=== PATIENT | female | born 1930 | race Caucasian/White ===

== ENCOUNTER 2019-09-08 14:34 | Emergency (ER) | payer MEDICARE ==
[~2019-09-08] VITALS: Ht 154.9 cm; Wt 61.0 kg
[~2019-09-08 14:34] MED LIST: ASPI-612 PO; ATOR20TA58 PO; CLOP75TA PO; LISI10TA2 PO; LISI40TA2 PO
[2019-09-08 15:20] VITALS: BP 143/67
--- NOTE | 2019-09-08 15:31 | RAD ---
EXAM: Right long finger, 3 views. HISTORY: Trauma. COMPARISON: None. FINDINGS: 3 views of the right long finger are obtained. There is soft tissue swelling involving the distal aspect of the third finger. There is overlying bandage material. No convincing foreign body is seen. IMPRESSION: Soft tissue swelling involving the distal third finger. No fracture or foreign body is seen. Electronically signed by: Susan Cruz MD (09/08/2019 3:29 PM) [facility]
[2019-09-08] MEDS: HYDROcodone/APAP 5/325MG 1 TAB TABLET PO ONE (16:45)
[2019-09-08] MEDS: TRANEXAMIC ACID 1,000 MG/10 ML VIAL. TOP ONE (16:45)
[2019-09-08] MEDS: LIDOCAINE WITH 8.4% SOD BICARB 3 ML DISP.SYRIN. INJ ONE (16:45)
[2019-09-08] MEDS: DIPH,PERTUSS(ACELL),TET VAC/PF 0.5 ML SYRINGE. VAX IM ONE (16:51)
--- NOTE | 2019-09-08 17:36 | PHYS DOC ---
Past Medical History Past Medical History: Hypertension, Hypothyroid Past Surgical History: Tonsillectomy Additional Past Surgical Histo: D&C Smoking Status: Never Smoker Alcohol Use: Rarely Adult General Chief Complaint Chief Complaint: FINGER INJURY HPI HPI Patient is a 89 year old female with a history of hypertension, hypothyroidism, who presents to the ED today complaining of right middle finger laceration. Patient states she got cut yesterday while closing a window. She reports the window fell on her finger. She is right-handed. She reports she is on Plavix and has been bleeding since the injury happened yesterday at 1 PM Review of Systems Review of Systems Constitutional: Denies fever or chills [] Musculoskeletal: Denies back pain or joint pain [] Integument: Reports right middle finger laceration Neurologic: Denies headache, focal weakness or sensory changes [] All other systems were reviewed and found to be within normal limits, except as documented in this note. Current Medications Current Medications Current Medications Medications (Trade) Dose Ordered Sig/Les Start Time Stop Time Status Last Admin Dose Admin Acetaminophen/ Hydrocodone Bitart (Lortab 5/325) 1 tab 1X ONCE 09/08/19 16:00 09/08/19 16:01 DC 09/08/19 16:45 1 TAB Diphtheria/ Tetanus/Acell Pertussis (ADACEL TDap SYRINGE) 0.5 ml ONCE ONCE 09/08/19 16:00 09/08/19 16:01 DC 09/08/19 16:51 0.5 ML Lidocaine HCl (Buffered Lidocaine 1%) 6 ml 1X ONCE 09/08/19 16:00 09/08/19 16:01 DC 09/08/19 16:45 6 ML Tranexamic Acid (Cyklokapron) 1,000 mg 1X ONCE 09/08/19 16:00 09/08/19 16:01 DC 09/08/19 16:45 1,000 MG Allergies Allergies Allergies Coded Allergies Type Severity Reaction Last Updated Verified Penicillins Allergy Intermediate 07/06/19 No Physical Exam Physical Exam Constitutional: Well developed, well nourished, no acute distress, non-toxic appearance. [] Skin: Distal end of the right middle finger with a skin avulsion type laceration approximately 2 cm, laceration site is bleeding. No obvious tendon invol vement. Patient able to flex and extend the finger at the MIP PIP and DIP joint. Adequate radial, median sensation to the right middle finger. +2 right radial pulse. Cap refill less than 2 seconds the right middle finger. Back: No tenderness, no CVA tenderness. [] Extremities: No tenderness, no cyanosis, no clubbing, ROM intact, no edema. [] Neurologic: Alert and oriented X 3, normal motor function, normal sensory function, no focal deficits noted. [] Psychologic: Affect normal, judgement normal, mood normal. [] Current Patient Data Vital Signs Vital Signs Date Time Temp Pulse Resp B/P (MAP) Pulse Ox O2 Delivery O2 Flow Rate FiO2 09/08/19 15:20 98.8 79 18 143/67 (92) Room Air 98.8 EKG EKG [] Radiology/Procedures Radiology/Procedures []PROCEDURE: FINGER(S) RIGHT EXAM: Right long finger, 3 views. HISTORY: Trauma. COMPARISON: None. FINDINGS: 3 views of the right long finger are obtained. There is soft tissue swelling involving the distal aspect of the third finger. There is overlying bandage material. No convincing foreign body is seen. IMPRESSION: Soft tissue swelling involving the distal third finger. No fracture or foreign body is seen. Electronically signed by: Susan Cruz MD (09/08/2019 3:29 PM) [facility] DICTATED and SIGNED BY: SUSAN CRUZ MD DATE: 09/08/19 1529 Laceration/Wound Repair Wound Location: Right middle finger Wound's Depth, Shape: Skin avulsion Wound Length (cm): Approximately 2 cm Wound Explored: clean Irrigated w/ Saline (ccs): 20 Betadine Prep?: y Anesthesia: 1% of buffered lidocaine Volume Anesthetic (ccs): Approximately 4 cc TXA was used to stop the bleeding Wound Repaired With: Vicryl Suture Size/Type: 4.0/7 interrupted sutures Progress : Pressure dressing was applied to the laceration site Course & Med Decision Making Course & Med Decision Making Pertinent Labs and Imaging studies reviewed. (See chart for details) This is a 89-year-old female patient presenting to the ED today with right middle finger laceration that occurred yesterday after window accidentally fell on her finger. Right middle finger x-rays are negative for any acute findings. Laceration was repaired by me as noted in procedures. Wound care instructions or return precautions provided. Tetanus up-to-date. Dragon Disclaimer Dragon Disclaimer This electronic medical record was generated, in whole or in part, using a voice recognition dictation system. Departure Departure Impression: Primary Impression: Laceration of finger Disposition: 01 HOME, SELF-CARE Condition: STABLE Referrals: REINIER GARCIA MD (PCP) follow up with your doctor in 1-2 weeks Patient Instructions: Fingertip Laceration Additional Instructions: Keep the finger clean and dry. Leave the dressing on for 24 hours. You can remove it tomorrow evening. If it is not bleeding you can leave the area open to air. Apply Neosporin to the area twice a day starting tomorrow evening. You can wash the area with soap and water starting tomorrow evening. Monitor the area for any signs of infection including but not limited to increased redness, warmth, yellow drainage to the area and return to the ED or see your own doctor if they occur. Problem Qualifiers Primary Impression: Laceration of finger Encounter type: initial encounter Finger: unspecified finger Damage to nail status: without damage Foreign body presence: without foreign body Laterality: right Qualified Codes: S61.219A - Laceration without foreign body of unspecified finger without damage to nail, initial encounter MARY NAVARRETE [employer] MECH[employer]IC Sep 08, 2019 17:36
== END 2019-09-08 17:54 | disposition home or self-care (01) ==
LOC: ER 14:34
DX: S61.212A Laceration without foreign body of right middle finger without damage to nail, initial encounter (principal); I10 Essential (primary) hypertension; E03.9 Hypothyroidism, unspecified; Z88.0 Allergy status to penicillin; Y28.8XXA Contact with other sharp object, undetermined intent, initial encounter; Y93.89 Activity, other specified; Y92.89 Other specified places as the place of occurrence of the external cause; Y99.8 Other external cause status
CPT/HCPCS: 12001; 73140; 90471; 90715; 99283; J3490